=== PATIENT | female | born 1965 | race Two or more races ===

== ENCOUNTER 2017-02-25 15:09 | Emergency (ER) | payer OTHER ==
[~2017-02-25] VITALS: Ht 152.4 cm; Wt 58.6 kg
[2017-02-25 15:17] VITALS: BP 151/80
[2017-02-25] MEDS ORDERED: HYDROcodone/APAP 5/325 TABLET ONE (15:57)
[2017-02-25] MEDS ORDERED: HYDROcodone/APAP 5/325 TABLET PO PRN (16:00)
[2017-02-25] MEDS ORDERED: ACETAMINOPHEN 325 MG TABLET ONE (16:48)
[2017-02-25] MEDS ORDERED: ACETAMINOPHEN 325 MG TABLET PO ONE (17:00)
== END 2017-02-25 18:49 | disposition home or self-care (01) ==
LOC: ED 18:43
DX: S16.1XXA Strain of muscle, fascia and tendon at neck level, initial encounter (principal); I10 Essential (primary) hypertension; V43.52XA Car driver injured in collision with other type car in traffic accident, initial encounter; Y93.89 Activity, other specified; Y92.410 Unspecified street and highway as the place of occurrence of the external cause; Y99.8 Other external cause status
CPT/HCPCS: 70450; 72125

== ENCOUNTER → 2017-10-24 | Outpatient (CLI) | payer OTHER | END | disposition home or self-care (01) | LOC: CARD 10:31 | PROVIDERS: ATTEND Internal Medicine Cardiovascular Disease | DX: Z01.818 Encounter for other preprocedural examination (principal); I49.1 Atrial premature depolarization; H71.22 Cholesteatoma of mastoid, left ear; H90.12 Conductive hearing loss, unilateral, left ear, with unrestricted hearing on the contralateral side | CPT/HCPCS: 93005 ==

== ENCOUNTER 2018-04-29 19:31 | Emergency (ER) | payer OTHER ==
[~2018-04-29] VITALS: Ht 154.9 cm; Wt 59.1 kg
[2018-04-29 20:02] LABS: MICROSCOPIC AUTO
[2018-04-29 20:04] LABS: CULTURE INDICATED? YES
[2018-04-29] MEDS ORDERED: HYDROmorphone 2 MG/ML, 1ML IVPush PRN (20:30)
[2018-04-29] MEDS ORDERED: SODIUM CHLORIDE FLUSH 10ML SYR IVF ONE (20:30)
[2018-04-29] MEDS ORDERED: ONDANSETRON 2MG/ML, 2ML IVPush ONE (20:30)
[2018-04-29] MEDS ORDERED: ONDANSETRON 2MG/ML, 2ML ONE (20:31)
[2018-04-29] MEDS ORDERED: HYDROmorphone 2 MG/ML, 1ML ONE (20:31)
[2018-04-29 20:37] LABS: BASOPHILS # (AUTO) 0.02 x10^3/uL (0-0.1); BASOPHILS % (AUTO) 0 % (0-1); EOSINOPHILS # (AUTO) 0.07 x10^3/uL (0-0.4); EOSINOPHILS % (AUTO) 1 % (1-7); LYMPHOCYTES # (AUTO) 1.02 x10^3/uL (1-3.4); LYMPHOCYTES % (AUTO) 11 % (22-44); MD NO; MEAN CORPUSCULAR HEMOGLOBIN 30.3 pg (27.0-34.8); MEAN CORPUSCULAR HGB CONC 34.1 g/dL (32.4-35.8); MEAN CORPUSCULAR VOLUME 88.8 fL (80-100); MEAN PLATELET VOLUME 9.2 fL (7.4-10.4); MONOCYTES # (AUTO) 0.42 x10^3/uL (0.2-0.8); MONOCYTES % (AUTO) 5 % (2-9); NEUTROPHILS # (AUTO) 7.53 x10^3/uL (1.8-6.8); NEUTROPHILS % (AUTO) 83 % (42-75); PLATELET COUNT 256 x10^3/uL (130-400); RED BLOOD COUNT 4.69 x10^6/uL (3.82-5.3); RED CELL DISTRIBUTION WIDTH 14.1 % (9.6-15.2)
[2018-04-29 20:40] LABS: ALANINE AMINOTRANSFERASE 30 U/L (12-78); ALBUMIN 3.8 g/dL (3.4-5.0); ANION GAP 7 mmol/L (5-15); CALCIUM 8.9 mg/dL (8.5-10.1); CHLORIDE 106 mmol/L (98-107); CREATININE 0.82 mg/dL (0.55-1.02)
[2018-04-29 20:42] LABS: ALKALINE PHOSPHATASE 88 U/L (45-117); BILIRUBIN,TOTAL 0.3 mg/dL (0.2-1.0); TOTAL PROTEIN 7.5 g/dL (6.4-8.2)
[2018-04-29 21:14] VITALS: BP 170/86
== END 2018-04-29 21:51 | disposition home or self-care (01) ==
LOC: ED 21:30
DX: K80.20 Calculus of gallbladder without cholecystitis without obstruction (principal); N30.90 Cystitis, unspecified without hematuria
CPT/HCPCS: 36415; 76700; 80053; 81001; 83690; 85025; 87086; 96374; 96375; 99285; J1170; J2405

== ENCOUNTER → 2018-06-08 | Outpatient (CLI) | payer OTHER ==
[~2018-06-08] MED LIST: ACET325T14 PO; LOSA1TAB22 PO; OXYC1TAB6 PO
== END | disposition home or self-care (01) ==
LOC: STAR 15:26
PROVIDERS: ATTEND Surgery
DX: Z02.9 Encounter for administrative examinations, unspecified (principal)

== ENCOUNTER 2018-06-14 08:03 | Observation (INO) | payer OTHER ==
[~2018-06-14] VITALS: Ht 160 cm; Wt 62.8 kg
[~2018-06-14 08:03] MED LIST changes: +BUPIVACAINE/PF-EPI 0.5% 1:200K ONE; -OXYC1TAB6 PO
[2018-06-14] MEDS ORDERED: LACTATED RINGERS 1,000 ML IV SCH (08:39)
[2018-06-14] MEDS ORDERED: LIDOCAINE-MPF 1%, 2ML INFIL ONE (09:00)
[2018-06-14] MEDS ORDERED: FENTANYL PF 250 MCG/5ML ONE (09:34)
[2018-06-14] MEDS ORDERED: MIDAZOLAM 1 MG/ML, 2ML ONE (09:34)
[2018-06-14] MEDS ORDERED: SUCCINYLCHOLINE 20 MG/ML, 10ML ONE (09:36)
[2018-06-14] MEDS ORDERED: PROPOFOL 10 MG/ML, 20ML ONE (09:36)
[2018-06-14] MEDS ORDERED: ONDANSETRON 2MG/ML, 2ML ONE (09:36)
[2018-06-14] MEDS ORDERED: DEXAMETHASONE 4 MG/ML, 1ML ONE (09:36)
[2018-06-14] MEDS ORDERED: ROCURONIUM 10MG/ML,5ML ONE (09:36)
[2018-06-14] MEDS ORDERED: CEFAZOLIN 1,000 MG ONE ×2 (09:36)
[2018-06-14] MEDS ORDERED: KETOROLAC 30 MG/1 ML ONE (09:41)
[2018-06-14] MEDS ORDERED: GLYCOPYRROLATE 0.2MG/1ML, 5ML ONE (09:41)
[2018-06-14] MEDS ORDERED: NEOSTIGMINE 1 MG/ML, 10ML ONE (09:41)
[2018-06-14] MEDS ORDERED: EPHEDRINE 50 MG/ML, 1ML IVPush PRN (10:00)
[2018-06-14] MEDS ORDERED: MEPERIDINE/PF 25MG/0.5ML IVPush PRN (10:00)
[2018-06-14] MEDS ORDERED: ACETAMINOPHEN 325 MG TABLET PO PRN (10:00)
[2018-06-14] MEDS ORDERED: ONDANSETRON ODT 8 MG PO PRN (10:00)
[2018-06-14] MEDS ORDERED: PROMETHAZINE 12.5 MG SUPP PR PRN (10:00)
[2018-06-14] MEDS ORDERED: ALBUTEROL SULFATE 2.5 MG/3 ML NPPB PRN (10:00)
[2018-06-14] MEDS ORDERED: MORPHINE SULFATE 4 MG/ML, 1ML IVPush PRN ×2 (10:00→12:00)
[2018-06-14] MEDS ORDERED: LORazepam 2 MG/ML, 1ML IVPush PRN (10:00)
[2018-06-14] MEDS ORDERED: OXYcodone 5 MG/5 ML ORAL.SOL UDC PO PRN (10:00)
[2018-06-14] MEDS ORDERED: ONDANSETRON 2MG/ML, 2ML IV PRN (10:00)
[2018-06-14] MEDS ORDERED: PROMETHAZINE 25 MG/ML, 1ML IV PRN (10:00)
[2018-06-14] MEDS ORDERED: hydrALAzine 20 MG/ML, 1ML IV PRN (10:00)
[2018-06-14] MEDS ORDERED: MIDAZOLAM 1 MG/ML, 2ML IV PRN (10:00)
[2018-06-14] MEDS ORDERED: LABETALOL 5MG/ML, 20ML IV PRN (10:00)
[2018-06-14] MEDS ORDERED: HYDROmorphone 1 MG/ML, 1ML IV PRN (10:00)
[2018-06-14] MEDS ORDERED: ACETAMINOPHEN 650 MG/20.3 ML UDC ONE (11:01)
[2018-06-14] MEDS ORDERED: OXYcodone 5 MG/5 ML ORAL.SOL UDC ONE (11:02)
[2018-06-14] MEDS: FENTANYL PF 100 MCG/2ML IV PRN ×2 (11:20→11:40)
[2018-06-14] MEDS ORDERED: FENTANYL PF 100 MCG/2ML ONE (11:21)
[2018-06-14] MEDS ORDERED: KETOROLAC 30 MG/1 ML IV PRN (12:00)
[2018-06-14 12:08] VITALS: BP 140/88
[2018-06-14] MEDS: LACTATED RINGERS 1,000 ML IV SCH (12:33)
[2018-06-14 12:45] VITALS: BP 148/81
[2018-06-14] MEDS: OXYcodone 5 MG/5 ML ORAL.SOL UDC PO PRN ×2 (15:12→22:01)
[2018-06-14 20:54] VITALS: BP 117/67
[2018-06-15] VITALS: BP 107/64
[2018-06-15] MEDS: LACTATED RINGERS 1,000 ML IV SCH (01:18)
[2018-06-15 03:27] VITALS: BP 104/63
[2018-06-15 05:42] LABS: BASOPHILS # (AUTO) 0.03 x10^3/uL (0-0.1); BASOPHILS % (AUTO) 0 % (0-1); EOSINOPHILS % (AUTO) 0 % (1-7); LYMPHOCYTES # (AUTO) 1.16 x10^3/uL (1-3.4); LYMPHOCYTES % (AUTO) 11 % (22-44); MD NO; MEAN CORPUSCULAR HEMOGLOBIN 30.2 pg (27.0-34.8); MEAN CORPUSCULAR HGB CONC 33.8 g/dL (32.4-35.8); MEAN CORPUSCULAR VOLUME 89.1 fL (80-100); MONOCYTES # (AUTO) 0.73 x10^3/uL (0.2-0.8); MONOCYTES % (AUTO) 7 % (2-9); NEUTROPHILS # (AUTO) 8.46 x10^3/uL (1.8-6.8); NEUTROPHILS % (AUTO) 82 % (42-75); PLATELET COUNT 255 x10^3/uL (130-400); RED BLOOD COUNT 4.22 x10^6/uL (3.82-5.3); RED CELL DISTRIBUTION WIDTH 13.9 % (9.6-15.2)
[2018-06-15 06:01] LABS: CALCIUM 8.5 mg/dL (8.5-10.1); CHLORIDE 103 mmol/L (98-107)
[2018-06-15 06:07] LABS: ALANINE AMINOTRANSFERASE 102 U/L (12-78); ALBUMIN 3.1 g/dL (3.4-5.0); ALKALINE PHOSPHATASE 92 U/L (45-117); ANION GAP 6 mmol/L (5-15); BILIRUBIN,TOTAL 0.7 mg/dL (0.2-1.0); CREATININE 0.69 mg/dL (0.55-1.02); TOTAL PROTEIN 6.4 g/dL (6.4-8.2)
[2018-06-15 07:45] VITALS: BP 110/69
[2018-06-15] MEDS ORDERED: OXYC1TAB6 PO (08:06)
[2018-06-15] MEDS ORDERED: HYDROCHLOROTHIAZIDE 25 MG TABLET PO SCH (09:00)
[2018-06-15] MEDS ORDERED: LOSARTAN 50MG TABLET PO SCH (09:00)
[2018-06-15 11:39] VITALS: BP 166/90
== END 2018-06-15 12:18 | disposition home or self-care (01) ==
LOC: OUT 08:03 → 4NOR 11:55 → OUT 22:32 → DCLOUNGE 06-15 11:56
PROVIDERS: ADMIT Surgery; ATTEND Surgery
DX: K80.12 Calculus of gallbladder with acute and chronic cholecystitis without obstruction (principal); I10 Essential (primary) hypertension
CPT/HCPCS: 36415; 47562; 80053; 85025; 88304; 96374; C1760; G0378; J0330; J0690; J1100; J1885; J2250; J2405; J2704; J2710; J3010; J3490; J7120